=== PATIENT | female | born 1965 | race Caucasian/White ===

== ENCOUNTER 2018-05-29 06:21 | Observation (INO) ==
--- NOTE | 2018-05-29 07:48 | ED ---
HPI General Chief complaint: Chest Pain Stated complaint: Chest pains going to shoulder Time Seen by Provider: 05/29/18 07:30 History of Present Illness HPI narrative: Patient is a 52-year-old female history of high blood pressure high cholesterol diabetes presents emergency department for evaluation of chest pain substernal with radiation to her neck and shoulder started last night. Patient states she is just feeling kind of fatigued as well. No shortness of breath, mild dizziness, mild nausea no vomiting. States is never had any heart or lung problems. She is never had a stress test before. Stopped smoking 2 months ago. States symptoms are moderate, central chest, radiation context and associated signs symptoms as above. Related Data Home Medications Medication Instructions Recorded Confirmed bupropion HCl 150 mg PO QAM 05/29/18 05/29/18 duloxetine 60 mg PO DAILY 05/29/18 05/29/18 gabapentin 300 mg PO TID 05/29/18 05/29/18 glimepiride 1 mg PO QAM 05/29/18 05/29/18 losartan 50 mg PO DAILY 05/29/18 05/29/18 methocarbamol 500 mg PO Q6PM 05/29/18 05/29/18 naproxen 500 mg PO BID PRN 05/29/18 05/29/18 Allergies Allergy/AdvReac Type Severity Reaction Status Date / Time metformin Allergy Hives Verified 05/29/18 07:14 Review of Systems ROS: all other systems reviewed are negative [facility] Social History Social History Substance History: No History of Abuse Second Hand Smoke Exposure: Yes Smoking Status: Former smoker Tobacco Type: Cigarettes How Often Do You Have a Drink Containing Alcohol: Never Recent Travel in [facility] within the Last 8 Weeks: No Recent Out of Country Travel within the Last 8 Weeks: No Immunization History Tetanus Immunization: >5 Years Exam Narrative Exam Narrative: GENERAL: Well-developed well-nourished no obvious distress. SKIN: Focused skin assessment warm/dry. HEAD: Atraumatic. Normocephalic. EYES: Pupils equal and round. No scleral icterus. No injection or drainage. ENT: No nasal bleeding or discharge. Mucous membranes pink and moist. NECK: Trachea midline. No JVD. CARDIOVASCULAR: Regular rate and rhythm. No murmur appreciated. 2+ bilateral equal pulses in all 4 extremities. RESPIRATORY: No accessory muscle use. Clear to auscultation. Breath sounds equal bilaterally. GASTROINTESTINAL: Abdomen soft, non-tender, nondistended. Hepatic and splenic margins not palpable. MUSCULOSKELETAL: No obvious deformities. No clubbing. No cyanosis. No edema. NEUROLOGICAL: Awake and alert. No obvious cranial nerve deficits. Motor grossly within normal limits. Normal speech. PSYCHIATRIC: Appropriate mood and affect; insight and judgment normal. Course Initial Documented Vital Signs Temperature 98.1 F 05/29/18 06:25 Pulse Rate 82 05/29/18 06:25 Respiratory Rate 18 05/29/18 06:25 Blood Pressure 147/101 H 05/29/18 06:25 Pulse Oximetry 97 05/29/18 06:25 Last Documented Vital Signs Temperature 98.3 F 05/29/18 10:39 Pulse Rate 65 05/29/18 10:39 Respiratory Rate 15 05/29/18 10:39 Blood Pressure 130/85 05/29/18 10:39 Pulse Oximetry 97 05/29/18 10:39 Medical Decision Making MDM Narrative Medical decision making narrative: Patient room in emerge department, EKG shows no acute abnormality, patient with risk factors including diabetes high blood pressure high cholesterol and obesity. Troponin negative, d-dimer weakly positive, CT PE protocol negative for PE but does show multiple very small granulomas throughout long spleen and liver. Unknown etiology and discussed that she will need to better after morphine 2 mg and Nitropaste applied in the ER. Discussed with her possible coronary artery disease and anginal symptoms and suggested that she needs a stress test. After discussion she opts for chest pain center observation. Medical Screen Exam Complete: Yes Emergency Medical Condition: Yes Lab Data Result diagrams: 05/29/18 07:45 05/29/18 07:45 Lab Results 05/29/18 05/29/18 05/29/18 Range/Units 07:45 07:45 07:45 WBC 9.0 (4.0-11.0) th/mm3 RBC 4.55 (4.00-5.30) mil/mm3 Hgb 12.9 (11.6-15.3) gm/dL Hct 39.2 (35.0-46.0) % MCV 86.0 (80.0-100.0) fL MCH 28.4 (27.0-34.0) pg MCHC 33.0 (32.0-36.0) % RDW 14.6 (11.6-17.2) % Plt Count 325 (150-450) th/mm3 MPV 7.5 (7.0-11.0) fL Neut % (Auto) 67.4 (16.0-70.0) % Lymph % (Auto) 22.7 (9.0-44.0) % [place] % (Auto) 7.0 (0.0-8.0) % Eos % (Auto) 2.2 (0.0-4.0) % Baso % (Auto) 0.7 (0.0-2.0) % Neut # (Auto) 6.1 (1.8-7.7) th/mm3 Lymph # (Auto) 2.1 (1.0-4.8) th/mm3 [place] # (Auto) 0.6 (0.0-0.9) th/mm3 Eos # (Auto) 0.2 (0.0-0.4) th/mm3 Baso # (Auto) 0.1 (0.0-0.2) th/mm3 WBC Differential . Differential Comment Auto diff final PT 9.8 (9.8-11.6) sec INR 1.0 Ratio APTT 28.2 (23.4-31.7) sec D-Dimer Quant (PE/DVT) 0.62 H (0.00-0.50) mg/L FEU Sodium (136-145) meq/L Potassium (3.5-5.1) meq/L Chloride (98-107) meq/L Carbon Dioxide (21.0-32.0) meq/L Anion Gap (5-15) meq/L BUN (7-18) mg/dL Creatinine (0.50-1.00) mg/dL Estimated GFR (>89) mL/min Random Glucose (74-106) mg/dL Calcium (8.5-10.1) mg/dL Total Bilirubin (0.2-1.0) mg/dL AST (15-37) U/L ALT (10-53) U/L Alkaline Phosphatase (45-117) U/L Troponin I (0.02-0.05) ng/mL Total Protein (6.4-8.2) g/dL Albumin (3.4-5.0) g/dL 05/29/18 Range/Units 07:45 WBC (4.0-11.0) th/mm3 RBC (4.00-5.30) mil/mm3 Hgb (11.6-15.3) gm/dL Hct (35.0-46.0) % MCV (80.0-100.0) fL MCH (27.0-34.0) pg MCHC (32.0-36.0) % RDW (11.6-17.2) % Plt Count (150-450) th/mm3 MPV (7.0-11.0) fL Neut % (Auto) (16.0-70.0) % Lymph % (Auto) (9.0-44.0) % [place] % (Auto) (0.0-8.0) % Eos % (Auto) (0.0-4.0) % Baso % (Auto) (0.0-2.0) % Neut # (Auto) (1.8-7.7) th/mm3 Lymph # (Auto) (1.0-4.8) th/mm3 [place] # (Auto) (0.0-0.9) th/mm3 Eos # (Auto) (0.0-0.4) th/mm3 Baso # (Auto) (0.0-0.2) th/mm3 WBC Differential Differential Comment PT (9.8-11.6) sec INR Ratio APTT (23.4-31.7) sec D-Dimer Quant (PE/DVT) (0.00-0.50) mg/L FEU Sodium 140 (136-145) meq/L Potassium 4.4 (3.5-5.1) meq/L Chloride 106 (98-107) meq/L Carbon Dioxide 29.5 (21.0-32.0) meq/L Anion Gap 5 (5-15) meq/L BUN 10 (7-18) mg/dL Creatinine 0.78 (0.50-1.00) mg/dL Estimated GFR 78 L (>89) mL/min Random Glucose 149 H (74-106) mg/dL Calcium 8.3 L (8.5-10.1) mg/dL Total Bilirubin 0.4 (0.2-1.0) mg/dL AST 14 L (15-37) U/L ALT 25 (10-53) U/L Alkaline Phosphatase 76 (45-117) U/L Troponin I Less than 0.02 L (0.02-0.05) ng/mL Total Protein 7.3 (6.4-8.2) g/dL Albumin 3.8 (3.4-5.0) g/dL Imaging Data Radiologist's impression: Chest X-Ray 05/29/18 07:45 CONCLUSION: The lungs are clear. Chest CTA 05/29/18 08:39 CONCLUSION: 1. This study is negative for pulmonary embolism. 2. Innumerable noncalcified pulmonary nodules are noted bilaterally ranging in size from 2 to 9 mm. These are indeterminate. 3. Hepatosplenomegaly. 4. Granulomatous changes involving the left hilum, left lung, liver and spleen. Discharge Plan Discharge Order Discharge Orders: ED Use Only Admit Order (Routine); Ordered 05/29/18 Ordered By: Arnie Eugene Physicians Team ED Provider: Arnie Eugene Primary Care Provider: Yvonne Garcia Rxs /Orders / Referrals /Forms Prescriptions: No Action losartan 50 mg Tablet 50 mg PO DAILY RF: 0 methocarbamol 500 mg Tablet 500 mg PO Q6PM RF: 0 glimepiride 1 mg Tablet 1 mg PO QAM RF: 0 gabapentin 300 mg Capsule 300 mg PO TID RF: 0 naproxen 500 mg Tablet 500 mg PO BID PRN (Reason: Pain) RF: 0 bupropion HCl 150 mg Tablet Extended Release 24 Hr 150 mg PO QAM RF: 0 duloxetine 60 mg Capsule,Delayed Release(Dr/Ec) 60 mg PO DAILY RF: 0 Status ED Status: Admitted Patient
[2018-05-29 08:20] LABS: Baso # (Auto) 0.1 th/mm3 (0.0-0.2); Baso % (Auto) 0.7 % (0.0-2.0); Eos # (Auto) 0.2 th/mm3 (0.0-0.4); Eos % (Auto) 2.2 % (0.0-4.0); Hematocrit 39.2 % (35.0-46.0); Hemoglobin 12.9 gm/dL (11.6-15.3); Lymph # (Auto) 2.1 th/mm3 (1.0-4.8); Lymph % (Auto) 22.7 % (9.0-44.0); Mean Corpuscular Hemoglobin 28.4 pg (27.0-34.0); Mean Platelet Volume 7.5 fL (7.0-11.0); Mono # (Auto) 0.6 th/mm3 (0.0-0.9); Neut # (Auto) 6.1 th/mm3 (1.8-7.7); Neut % (Auto) 67.4 % (16.0-70.0); Platelet Count 325 th/mm3 (150-450); Red Blood Count 4.55 mil/mm3 (4.00-5.30); Red Cell Distribution Width 14.6 % (11.6-17.2)
[2018-05-29 08:29] LABS: Activated Partial Thrombo Time 28.2 sec (23.4-31.7); Prothrombin Time 9.8 sec (9.8-11.6)
--- NOTE | 2018-05-29 08:30 | XR ---
EXAM DATE: 05/29/2018 8:25 AM EST AGE/SEX: 52 years / Female INDICATIONS: Chest pain. CLINICAL DATA: This is the patient's initial encounter. Patient reports that signs and symptoms have been present for 2 days and indicates a pain score of 7/10. MEDICAL/SURGICAL HISTORY: None. None. COMPARISON: No prior exams available for comparison. FINDINGS: A single AP view of the chest demonstrates the lungs to be symmetrically aerated without evidence of mass, infiltrate or effusion. The cardiomediastinal contours are unremarkable. Osseous structures a re intact. CONCLUSION: The lungs are clear. Electronically signed by: Arnie Fritz MD Board Certified Radiologist 05/29/2018 8:28 AM EST
[2018-05-29 08:38] LABS: Alanine Aminotransferase 25 U/L (10-53); Albumin 3.8 g/dL (3.4-5.0); Anion Gap 5 meq/L (5-15); Aspartate Aminotransferase 14 U/L (15-37); Blood Urea Nitrogen 10 mg/dL (7-18); Calcium 8.3 mg/dL (8.5-10.1); Carbon Dioxide 29.5 meq/L (21.0-32.0); Chloride 106 meq/L (98-107); Glomerular Filtration Rate 78 mL/min (>89); Glucose,Random 149 mg/dL (74-106); Potassium 4.4 meq/L (3.5-5.1); Sodium 140 meq/L (136-145)
[2018-05-29 08:43] LABS: Alkaline Phosphatase 76 U/L (45-117); Total Protein 7.3 g/dL (6.4-8.2)
[2018-05-29] MEDS ORDERED: Morphine Sulfate Inj 2 MG/ML Vial IV.PUSH ONE (09:30)
[2018-05-29 10:40] VITALS: BP 130/85; RESP 15; TEMP 98.3; O2SAT 97
--- NOTE | 2018-05-29 10:53 | CT ---
EXAM DATE: 05/29/2018 10:43 AM EST AGE/SEX: 52 years / Female INDICATIONS: Chest pain that radiates into neck and shoulders. CLINICAL DATA: This is the patient's initial encounter. Patient reports that signs and symptoms have been present for 1 day and indicates a pain score of 6/10. MEDICAL/SURGICAL HISTORY: Hypertension. Hysterectomy. RADIATION DOSE: 33.18 CTDI (mGy) ; Patient body habitus COMPARISON: No prior exams available for comparison. TECHNIQUE: Volumetric scanning was performed using a multi-row detector CT scanner during bolus infu elen of 73 ml Omnipaque 350 (iohexol) nonionic water-soluble contrast as a single exam dose. The paz a was post processed with a variety of visualization algorithms including full volume maximum intensi ty projection and sliding thin slab reformation. Using automated exposure control and adjustment of t he mA and/or kV according to patient size, radiation dose was kept as low as reasonably achievable to obtain optimal diagnostic quality images. DICOM format image data is available electronically for r eview and comparison. FINDINGS: Pulmonary Arteries: No filling defects are seen in the pulmonary arteries out to the subsegmental ve ssels. The left and right pulmonary arteries are normal in diameter. Lung: Innumerable noncalcified pulmonary nodules are noted bilaterally ranging in size from 2 to 9 m m. These are indeterminate. Calcified granulomas are noted within the left hilum and left lung. Effusion: None. Mediastinum: No evidence of mediastinal or hilar adenopathy. Other: The axilla is unremarkable. Calcified granulomas are also noted within the spleen and liver. Hepatosplenomegaly is noted. Degenerative changes are noted throughout the thoracic spine. CONCLUSION: 1. This study is negative for pulmonary embolism. 2. Innumerable noncalcified pulmonary nodules are noted bilaterally ranging in size from 2 to 9 mm. These are indeterminate. 3. Hepatosplenomegaly. 4. Granulomatous changes involving the left hilum, left lung, liver and spleen. Electronically signed by: Arnie Fritz MD Board Certified Radiologist 05/29/2018 10:52 AM EST
[2018-05-29] MEDS ORDERED: Acetaminophen 500 MG Tablet PO PRN (11:34)
[2018-05-29] MEDS ORDERED: Naproxen 500 MG Tablet PO PRN (12:10)
--- NOTE | 2018-05-29 12:10 | P.HPCA ---
History of Present Illness Primary Care Physician: Yvonne Garcia MD Chief Complaint: Chest pain History of Present Illness: 52 year old female with history of hypertension, fibromyalgia, and borderline diabetes for further evaluation of chest pain. Onset 3 AM. Awakened her from sleep. Location substernal. Characterized as pressure. Radiation to left anterior chest left shoulder left-sided neck. Duration come in waves, discomfort lasting seconds. Associated symptoms included dyspnea. No nausea, vomiting, diaphoresis. Currently chest pain-free. Taking a deep breath makes pain worse. No precipitating or relieving factors. Straight more comfortable, states only in fact she feels as though there is a brick on her chest. Denies similar pain in the past. No known coronary artery disease. Endorses past panic attacks but current symptoms did not remind her of past panic attacks. No recent illness or injury. Past cardiac testing Does not recall past cardiac testing. No past cardiac catheterizations. Social history Known hypertension and borderline diabetes. Denies hyperlipidemia or coronary artery disease. Former smoker, quit 2 months ago. [id number] history. Denies alcohol or recreational drug use. Endorses sedentary lifestyle. Family history Noncontributory for early onset cardiovascular disease. - Diagnosis (1) Atypical chest pain (2) Hypertension (3) Borderline diabetes (4) Anxiety (5) Peripheral neuropathy (6) Fibromyalgia (7) Multiple pulmonary nodules Review of Systems All other systems reviewed negative except as stated in HPI PMFSH - History History Provided By: Patient - Medical History Medical History: Medical History (Last Updated 05/29/18 @ 12:05 by CHERELLE Gonsalez) History of hysterectomy (Acute) Anxiety delivery delivered Fibromyalgia HTN (hypertension) Prediabetes - Social History I have reviewed the patient's Social History: Yes - Tobacco History Second Hand Smoke Exposure: Yes Tobacco Use In Past 30 Days: No Smoking Status: Former smoker (Quit 2 months ago) Tobacco Type: Cigarettes Number of Pack Years (if former smoker): 30 - Alcohol History How Often Do You Have a Drink Containing Alcohol: Never - Substance Use History Substance History: No History of Abuse - Travel History Recent Travel in the [place] Within the Last 8 Weeks: No Recent Travel Out of the Country Within the Last 8 Weeks: No - Immunization History Tetanus Immunization: >5 Years Medications and Allergies Active Medications: Active Medications Acetaminophen (Tylenol) 500 mg PO Q4H PRN PRN Reason: HEADACHE Ondansetron HCl (Zofran Inj) 4 mg IV.PUSH Q6H PRN PRN Reason: NAUSEA Sodium Chloride (Ns Flush) 2 ml IV.FLUSH UNSCH PRN PRN Reason: FLUSH AFTER USING IV ACCESS Last Admin: 05/29/18 08:10 Dose: 2 ml Sodium Chloride (Ns Flush) 2 ml IV.FLUSH BID BILL Sodium Chloride (Ns Flush) 2 ml IV.FLUSH PRN PRN PRN Reason: FLUSH AFTER USING IV ACCESS Allergies Allergy/AdvReac Type Severity Reaction Status Date / Time metformin Allergy Hives Verified 05/29/18 07:14 Home Medications Medication Instructions Recorded Confirmed Type bupropion HCl 150 mg PO QAM 05/29/18 05/29/18 History duloxetine 60 mg PO DAILY 05/29/18 05/29/18 History gabapentin 300 mg PO TID 05/29/18 05/29/18 History glimepiride 1 mg PO QAM 05/29/18 05/29/18 History losartan 50 mg PO DAILY 05/29/18 05/29/18 History methocarbamol 500 mg PO Q6PM 05/29/18 05/29/18 History naproxen 500 mg PO BID PRN 05/29/18 05/29/18 History Exam Vital signs: Vital Signs 05/29/18 06:25 05/29/18 07:45 05/29/18 08:53 Temperature 98.1 F 98.2 F 98.1 F Pulse Rate 82 68 73 Respiratory Rate 18 19 17 Blood Pressure 147/101 H 142/83 H 139/72 Pulse Oximetry 97 100 100 05/29/18 09:37 05/29/18 10:39 Temperature 98.3 F Pulse Rate 65 Respiratory Rate 15 Blood Pressure 140/93 H 130/85 Pulse Oximetry 97 Intake & Output 05/28/18 05/29/18 05/29/18 18:59 06:59 18:59 Weight 122.47 kg Narrative: GENERAL: Alert WN, WD, NAD, pleasant, morbidly obese female HEAD: NC, AT EYES: Sclera clear, conjunctiva without injection CV: RRR, without murmur, rub, gallop. Chest wall nontender to palpation RESP: Diminished lungs throughout bilateral, no crackles, wheeze, rhonchi, symmetrical chest rise, nonlabored, able to speak in full sentences ABD: Soft, NT, ND, no masses, positive bowel tones EXT: Pulses +2x4, no dependent edema MS: Normal tone x4 extremities, nontender, no obvious deformities, full range of motion NEURO: Motor strength 5/5 PSYCH: A+O x3, flat affect, appropriate speech, mood, insight and judgment SKIN: Normal turgor, normal texture, no lesions, no rashes, even hair distribution Results 05/29/18 07:45 05/29/18 07:45 Cardiac Enzymes 05/29/18 Range/Units 07:45 AST 14 L (15-37) U/L Troponin I Less than 0.02 L (0.02-0.05) ng/mL Coagulation 05/29/18 Range/Units 07:45 PT 9.8 (9.8-11.6) sec APTT 28.2 (23.4-31.7) sec CBC 05/29/18 Range/Units 07:45 WBC 9.0 (4.0-11.0) th/mm3 RBC 4.55 (4.00-5.30) mil/mm3 Hgb 12.9 (11.6-15.3) gm/dL Hct 39.2 (35.0-46.0) % Plt Count 325 (150-450) th/mm3 Neut # (Auto) 6.1 (1.8-7.7) th/mm3 Lymph # (Auto) 2.1 (1.0-4.8) th/mm3 [place] # (Auto) 0.6 (0.0-0.9) th/mm3 Eos # (Auto) 0.2 (0.0-0.4) th/mm3 Baso # (Auto) 0.1 (0.0-0.2) th/mm3 Comprehensive Metabolic Panel 05/29/18 Range/Units 07:45 Sodium 140 (136-145) meq/L Potassium 4.4 (3.5-5.1) meq/L Chloride 106 (98-107) meq/L Carbon Dioxide 29.5 (21.0-32.0) meq/L BUN 10 (7-18) mg/dL Creatinine 0.78 (0.50-1.00) mg/dL Calcium 8.3 L (8.5-10.1) mg/dL AST 14 L (15-37) U/L ALT 25 (10-53) U/L Alkaline Phosphatase 76 (45-117) U/L Total Protein 7.3 (6.4-8.2) g/dL Albumin 3.8 (3.4-5.0) g/dL Intake and Output 05/28/18 05/29/18 05/29/18 22:59 06:59 14:59 Other: Weight 122.47 kg - Imaging and Cardiology Imaging: Impressions Chest X-Ray 05/29/18 07:45 CONCLUSION: The lungs are clear. Chest CTA 05/29/18 08:39 CONCLUSION: 1. This study is negative for pulmonary embolism. 2. Innumerable noncalcified pulmonary nodules are noted bilaterally ranging in size from 2 to 9 mm. These are indeterminate. 3. Hepatosplenomegaly. 4. Granulomatous changes involving the left hilum, left lung, liver and spleen. EKG interpretations - EKG EKG results cardiology: sinus rhythm, normal axis, normal QRS, normal ST/T Caprini VTE Risk Assessment Caprini VTE Risk Assessment: No/Low Risk (score <= 1) Caprini Risk Assessment Model: Point Value = 1 Point Value = 2 Point Value = 3 Point Value = 5 Age 41-60 Minor surgery BMI > 25 kg/m2 Swollen legs Varicose veins or History of unexplained or recurrent spontaneous Oral contraceptives or hormone replacement Sepsis (< 1 month) Serious lung disease, including pneumonia (< 1 month) Abnormal pulmonary function Acute myocardial infarction Congestive heart failure (< 1 month) History of inflammatory bowel disease Medical patient at bed rest Age 61-74 Arthroscopic surgery Major open surgery (> 45 min) Laparoscopic surgery (> 45 min) Malignancy Confined to bed (> 72 hours) Immobilizing plaster cast Central venous access Age >= 75 History of VTE Family history of VTE Factor V Leiden Prothrombin [id number] Lupus anticoagulant Anticardiolipin antibodies Elevated serum homocysteine Heparin-induced thrombocytopenia Other congenital or acquired thrombophilia Stroke (< 1 month) Elective arthroplasty Hip, pelvis, or leg fracture Acute spinal cord injury (< 1 month) Prophylaxis Regimen: Total Risk Factor Score Risk Level Prophylaxis Regimen 0-1 Low Early ambulation 2 Moderate Order ONE of the following: *Sequential Compression Device (SCD) *Heparin 5000 units SQ BID 3-4 Higher Order ONE of the following medications: *Heparin 5000 units SQ TID *Enoxaparin/Lovenox 40 mg SQ daily (WT < 150 kg, CrCl > 30 mL/min) *Enoxaparin/Lovenox 30 mg SQ daily (WT < 150 kg, CrCl > 10-29 mL/min) *Enoxaparin/Lovenox 30 mg SQ BID (WT < 150 kg, CrCl > 30 mL/min) AND/OR *Sequential Compression Device (SCD) 5 or more Highest Order ONE of the following medications: *Heparin 5000 units SQ TID (Preferred with Epidurals) *Enoxaparin/Lovenox 40 mg SQ daily (WT < 150 kg, CrCl > 30 mL/min) *Enoxaparin/Lovenox 30 mg SQ daily (WT < 150 kg, CrCl > 10-29 mL/min) *Enoxaparin/Lovenox 30 mg SQ BID (WT < 150 kg, CrCl > 30 mL/min) AND *Sequential Compression Device (SCD) Assessment and Plan - Assessment (1) Atypical chest pain Code(s): R07.89 - Other chest pain Status: Acute Plan: Admitted chest pain center. Continue chest pain center protocol to rule out ACS. Monitor on telemetry. Will be seen and evaluated by Dr. Cooper Dickson. Discussed possible cardiac stress testing later this afternoon. This will be determined after evaluation by aging room hand. Patient agreeable to plan of care. (2) Hypertension Code(s): I10 - Essential (primary) hypertension Status: Chronic Plan: Continue to monitor. continue losartan, weight loss, and following a low-sodium diet. (3) Borderline diabetes Code(s): R73.03 - Prediabetes Status: Chronic Plan: Hold glimepiride. Add HGA1C. (4) Anxiety Code(s): F41.9 - Anxiety disorder, unspecified Status: Chronic Plan: Continue bupropion. (5) Peripheral neuropathy Code(s): G62.9 - Polyneuropathy, unspecified Status: Chronic Plan: Continue gabapentin. (6) Fibromyalgia Code(s): M79.7 - Fibromyalgia Status: Chronic Plan: Continue duloxetine. (7) Multiple pulmonary nodules Code(s): R91.8 - Other nonspecific abnormal finding of lung field Status: Acute Plan: CTA pulmonary angiogram found a noncalcified pulmonary nodules size range 2-9 mm. Discussed findings with her. Instructed to follow up with primary care provider to repeat CT 6 weeks. Verbalized understanding. Copies of CTA will be provided upon discharge. (2) Hypertension Qualifiers: Hypertension type: unspecified Qualified Code(s): I10 - Essential (primary) hypertension (5) Peripheral neuropathy Qualifiers: Peripheral neuropathy type: polyneuropathy, unspecified Qualified Code(s): G62.9 - Polyneuropathy, unspecified
[2018-05-29] MEDS ORDERED: buPROPion 150 MG XL 24 HR Tablet PO SCH (12:15)
[2018-05-29] MEDS ORDERED: Duloxetine 60 MG DR Capsule PO SCH (12:15)
[2018-05-29] MEDS ORDERED: Gabapentin 300 MG Capsule PO SCH (13:00)
[2018-05-29] MEDS ORDERED: Regadenoson Inj 0.4 MG/5 ML Syringe IV.PUSH ONE (14:17)
[2018-05-29 15:30] VITALS: PULSE 73
--- NOTE | 2018-05-29 17:31 | NM ---
EXAM DATE: 05/29/2018 5:24 PM EST AGE/SEX: 52 years / Female INDICATIONS:Angina. . Substernal chest pain. CLINICAL DATA: This is the patient's initial encounter. Patient reports that signs and symptoms have been present for 1 day and indicates a pain score of 5/10. MEDICAL/SURGICAL HISTORY: Hypertension. Diabetes. Hysterectomy. section. COMPARISON: No prior exams available for comparison. DOSE: 11.0 mCi Tc 99m Myoview at rest 35.0 mCi [id number] at stress 0.4 mg Lexiscan STRESS SYMPTOMS: Chest pressure. EJECTION FRACTION: 64 % TECHNIQUE: The patient underwent pharmacologic stress with infusion of prescribed dose. Continuous ECG tracing was monitored during stress. Gated SPECT imaging was performed after stress and conventi onal SPECT imaging was performed at rest. The examination was performed on a SPECT/CT scanner, both attenuation and non-corrected datasets were reviewed. FINDINGS: Distribution: The maximum perfused segment at stress is in the lateral wall. Perfusion Study: The pattern of perfusion at stress is within normal limits. Gated Study: There are intact wall motion and wall thickening without hypokinetic or dyskinetic segm ents. The ejection fraction is calculated at 64%. RISK CATEGORY: Low (<1% Annual Mortality Rate) CONCLUSION: 1. No scintigraphic findings of infarct or ischemia. 2. Adequate wall motion throughout been estimated ejection fraction of 64% Electronically signed by: Gab Armstrong MD Board Certified Radiologist 05/29/2018 5:29 PM EST
--- NOTE | 2018-05-29 21:28 | ECG ---
Date Performed: 05/29/2018 Time Performed: 06:40:10 PTAGE: 52 years EKG: Sinus rhythm NORMAL ECG NO PREVIOUS TRACING DOCTOR: Bharat Chawla Interpretating Date/Time 05/29/2018 21:27:12
--- NOTE | 2018-05-30 12:29 | TR ---
Date Performed: 05/29/2018 Time Performed: 16:34:44 DOCTOR: Santi Escalante DRUG LIST: CLINICAL HISTORY: ANGINA REASON FOR TEST: Angina REASON FOR ENDING: OBSERVATION: CONCLUSION: Lexiscan stress test was performed under standard four minute protocol. Radionuclide was injected one minute prior to ending the test. No electrocardiographic abormalities were present to suggest ischemia. Nuclear imaging and interpretation are pending. COMMENTS:
== END 2018-05-29 18:40 | disposition home or self-care (01) ==
LOC: NEDA 06:21 → NEPE 06:21 → NEPFCDU 14:06
PROVIDERS: ADMIT Internal Medicine Cardiovascular Disease; ATTEND Internal Medicine Cardiovascular Disease
DX: Z87.891 Personal history of nicotine dependence; I10 Essential (primary) hypertension; F17.210 Nicotine dependence, cigarettes, uncomplicated; R73.03 Prediabetes; R91.8 Other nonspecific abnormal finding of lung field; Z88.8 Allergy status to other drugs, medicaments and biological substances; F41.9 Anxiety disorder, unspecified; M79.7 Fibromyalgia; R07.89 Other chest pain; Z90.710 Acquired absence of both cervix and uterus; E78.00 Pure hypercholesterolemia, unspecified; G62.9 Polyneuropathy, unspecified
CPT/HCPCS: 71010; 71045; 71275; 78452; 80053; 84484; 85025; 85379; 85610; 85730; 90774; 90784; 93005; 93017; 96374; 99285; A9502; C8952; G0378; J2270; J2785; Q9967; Q9969